=== PATIENT | male | born 1970 | race Asian ===

== ENCOUNTER 2019-04-09 17:38 | Inpatient (IN) | payer BC ==
[~2019-04-09] VITALS: Ht 170.2 cm; Wt 111.6 kg
[2019-04-09] MEDS ORDERED: SODIUM CHLORIDE 0.9% 1000ML 1,000 ML IV STA (17:48)
[2019-04-09] MEDS ORDERED: HYDROMORPHONE 2MG/ML 2 MG/ML ML IV ONE (18:00)
[2019-04-09 18:22] LABS: BILIRUBIN,URINE NEGATIVE (NEGATIVE); CLARITY,URINE SL CLOUDY (CLEAR); KETONES,URINE TRACE (NEGATIVE); LEUKOCYTE ESTERASE ,URINE TRACE (NEGATIVE); NITRITE,URINE NEGATIVE (NEGATIVE); PROTEIN,URINE DIPSTICK 1+ (NEGATIVE); URINE UROBILINOGEN 1 mg/dL (0.2 - 1)
[2019-04-09 18:24] LABS: COLOR,URINE AMBER (YELLOW)
[2019-04-09 18:29] LABS: BASOPHILS # (AUTO) 0.1 (0.0-0.1); BASOPHILS % 0.3 % (0.0-1.0); EOSINOPHILS # (AUTO) 0.1 (0.0-0.4); EOSINOPHILS % 0.3 % (0.0-6.0); HEMATOCRIT 48.1 % (38.2-49.6); HEMOGLOBIN 16.5 g/dL (14.0-18.0); LYMPHOCYTES # (AUTO) 0.9 (1.0-3.2); LYMPHOCYTES % 4.5 % (18.0-39.1); MEAN CORPUSCULAR HEMOGLOBIN 32.2 pg (28-32); MEAN CORPUSCULAR HGB CONC 34.3 g/dL (31-35); MEAN CORPUSCULAR VOLUME 93.8 fL (81-99); MONOCYTES # (AUTO) 1.1 (0.2-0.8); MONOCYTES % 5.9 % (4.4-11.3); NEUTROPHILS # (AUTO) 16.8 (2.1-6.9); NEUTROPHILS % 88.4 % (38.7-80.0); PLATELET COUNT 216 x10e3/uL (140-360); RED BLOOD COUNT 5.13 x10e6/uL (4.3-5.7); RED CELL DISTRIBUTION WIDTH 11.9 % (11.7-14.4)
[2019-04-09] MEDS ORDERED: ACETAMINOPHEN 1000 MG/100 ML IV ONE (18:30)
[2019-04-09] MEDS ORDERED: IBUPROFEN 600 MG TAB PO ONE (18:30)
[2019-04-09] MEDS ORDERED: ONDANSETRON HCL INJ 2MG/ML 2ML 2 MG/ML VIAL IV ONE (18:30)
[2019-04-09 18:47] LABS: BACTERIA,URINE FEW /HPF; EPITHELIAL CELLS,URINE FEW /LPF; RBC,URINE 0-5 /HPF (0-5); WBC,URINE (MAN) 0-5 /HPF (0-5)
[2019-04-09 18:48] LABS: ALANINE AMINOTRANSFERASE 24 IU/L (0-55); ALBUMIN 3.6 g/dL (3.5-5.0); ALBUMIN/GLOBULIN RATIO 0.9 (0.8-2.0); ALKALINE PHOSPHATASE 69 IU/L (40-150); ANION GAP 14.9 mmol/L (8-16); BLOOD UREA NITROGEN 15 mg/dL (7-26); BUN/CREATININE RATIO 18 (6-25); CALCIUM 9.1 mg/dL (8.4-10.2); CARBON DIOXIDE 23 mmol/L (22-29); CHLORIDE 102 mmol/L (98-107); CREATINE KINASE 122 IU/L (30-200); CREATININE, SERUM 0.85 mg/dL (0.72-1.25); EST GLOMERULAR FILTRATION RATE > 60 ML/MIN (60-); GLUCOSE 116 mg/dL (74-118); LIPASE 59 U/L (8-78); POTASSIUM 3.9 mmol/L (3.5-5.1); SODIUM 136 mmol/L (136-145)
[2019-04-09] MEDS: PIPER-TAZ 3.375 GM 50 ML IV SCH (18:50)
--- NOTE | 2019-04-09 18:55 | NUR ---
RADIOLOGY AT BEDSIDE FOR CXR AT THIS TIME.
--- NOTE | 2019-04-09 19:32 | Diagnostic Imaging Report ---
EXAMINATION: CHEST SINGLE (PORTABLE) COMPARISON: None INDICATION: Abdominal pain, fever ^ERMD ORDER ^[id number] ^1854 ^Y DISCUSSION: Frontal view of the chest obtained at 1854 hours. HEART AND MEDIASTINUM: The cardiomediastinal silhouette is unremarkable. LINES: None. LUNGS: Lung volumes are low. Central pulmonary vasculature is mildly prominent. No pneumonia or pulmonary edema. PLEURA: No pleural effusion or pneumothorax. BONES AND SOFT TISSUES: No focal osseous lesion. The soft tissues are normal. IMPRESSION: Low lung volumes which accentuate the pulmonary vasculature. No acute pulmonary process. Signed by: Dr. Sal Irene MD on 04/09/2019 7:29 PM
[2019-04-09] MEDS ORDERED: SODIUM CHLORIDE 0.9% 50ML 50 ML ONE (19:33)
[2019-04-09] MEDS ORDERED: IOPAMIDOL 370 MG/ML 200 ML INFUS..BTL INJ ONE (19:33)
--- NOTE | 2019-04-09 20:15 | Diagnostic Imaging Report ---
CT Abdomen And Pelvis with Intravenous Contrast INDICATION: Sudden onset abdominal pain, fever ^r/o appy ^[id number] ^1955 TECHNIQUE: Thin collimation axial images obtained from the diaphragm to the level of the pubic symphysis following the uneventful administration of 100 cc of low osmolar, nonionic intravenous contrast. Dose reduction techniques used: Automated exposure control, adjustment of the mAs and/or kVp according to patient size, standardized low-dose protocol, and/or iterative reconstruction technique. RADIATION DOSE: Total DLP: 329.1 mGy*cm Estimated effective dose: (DLP x 0.015 x size factor) mSv CTDIvol has been reviewed. It is below the limits set by the Radiation Protocol Committee (RPC). COMPARISON: None. ABDOMEN FINDINGS: Lung Bases: Mild bibasilar atelectasis. Visualized portion of the mediastinum is normal Liver: Normal attenuation. No evidence for mass. Gallbladder: Present and appears normal. No biliary ductal dilatation. Pancreas: Normal attenuation without mass or ductal dilatation. Spleen: Normal in size. No evidence of mass.. Adrenal Glands: No evidence for mass. Kidneys: Right: Normal enhancement. No soft tissue mass. No hydronephrosis. Small amount of perinephric inflammation. Left: Normal enhancement. Upper pole cyst measures 10 mm. No hydronephrosis. Small amount of perinephric inflammation. Lymph Nodes: No enlarged upper abdominal lymph nodes. Lymph nodes in the right lower quadrant are increased in number and measure up to 10 mm. Aorta: Normal in diameter PELVIS FINDINGS: Bowel: Stomach: Normal. Small Bowel: There is edema throughout the small bowel mesentery of the lower abdomen. There is mild mural thickening and inspissated enteric contents in portions of the distal ileum. Large Bowel: Diverticulosis coli. There is mural thickening and pericolonic inflammation of the mid sigmoid colon extending into the small bowel mesentery. This mural thickening results in narrowing of the sigmoid colon lumen without evidence of dilatation of the upstream large bowel. A defined abscess is not visible. There is no evidence of perforation. Appendix: Present and appears normal. Bladder: Normal. Ureters: The right ureter is mildly distended as it passes through the peritoneal inflammation. Left ureter is normal Peritoneum/retroperitoneum: Exuberant inflammation in the lower pelvis with fluid in the paracolic gutters. No loculated fluid collection. No loculated fluid collection. Bones: Unremarkable for age. Soft tissues: Unremarkable. IMPRESSION: 1. Acute diverticulitis of the sigmoid colon with exuberant peritoneal inflammation involving several small bowel loops resulting in reactive ileus. Given the amount of inflammation surrounding the small bowel loops another entity to consider would be infectious enteritis with involvement of the adjacent sigmoid colon. No evidence of abscess or bowel perforation. 2. Normal appendix. 3. Mild bibasilar atelectasis. Signed by: Dr. Sal Irene MD on 04/09/2019 8:12 PM
[2019-04-09] MEDS ORDERED: ONDANSETRON HCL INJ 2MG/ML 2ML 2 MG/ML VIAL IV PRN (20:30)
[2019-04-09] MEDS ORDERED: SODIUM CHLORIDE FLUSH 10 ML SYR INJ PRN (20:30)
--- OUTSIDE RECORDS SUMMARY | 2019-04-09 20:50 | XMS REPORT ---
Author Author [facility] Address Unknown Phone Unavailable Care Team Providers Care Ccie Name Role Phone Lily BLAND Unavailable Unavailable Problems This patient has no known problems. Allergies, Adverse Reactions, Alerts This patient has no known allergies or adverse reactions. Medications This patient has no known medications. Results Test Description Test Time Test Comments Text Results Atomic Results Result Comments CT ABDOMEN/PELVIS W 2019-04-09 20:04:00 [place] [address] Patient Name: CHRIS CHENG MR #: [id number] : 1970 Age/Sex: 48/M Req #: [id number] Adm Physician: Ordered by: MASSIMO BURNETT ANIMAL ASSISTANT Report #: [id number] Location: ER Room/Bed: Procedure: [id number] CT/CT ABDOMEN/PELVIS W Exam Date: 04/09/19 Exam Time: 1955 REPORT STATUS: Signed CT Abdomen And Pelvis with Intravenous Contrast I NDICATION: Sudden onset abdominal pain, fever r/o appy [id number] TECHNIQUE: Thin collimation axial images obtained from the diaphragm to the level of the pubic symphysis following the uneventful administration of 100 cc of low osmolar, nonionic intravenous contrast. Dose reduction techniques used: Automated exposure control, adjustment of the mAs and/or kVp according to patient size, standardized low-dose protocol, and/or iterative reconstruction technique. RADIATION DOSE: Total DLP: 329.1 mGy*cm Estimated effective dose: (DLP x 0.015 x size factor) mSv CTDIvol has been reviewed. It is below the limits set by the Radiation Protocol Committee (RPC). COMPARISON: None. ABDOMEN FINDINGS: Lung Bases: Mild bibasilar atelectasis. Visualized portion of the mediastinum is normal Liver: Normal attenuation. No evidence for mass. Gallbladder: Present and appears normal. No biliary ductal dilatation. Pancreas: Normal attenuation without mass or ductal dilatation. Spleen: Normal in size. No evidence of mass.. Adrenal Glands: No evidence for mass. Kidneys: Right: Normal enhancement. No soft tissue mass. No hydronephrosis. Small amount of perinephric inflammation. Left: Normal enhancement. Upper pole cyst measures 10 mm. No hydronephrosis. Small amount of perinephric inflammation. Lymph Nodes: No enlarged upper abdominal lymph nodes. Lymph nodes in the right lower quadrant are increased in number and measure up to 10 mm. Aorta: Normal in diameter PELVIS FINDINGS: Bowel: Stomach: Normal. Small Bowel: There is edema throughout the small bowel mesentery of the lower abdomen. There is mild mural thickening and inspissated enteric contents in portions of the distal ileum. Large Bowel: Diverticulosis coli. There is mural thickening and pericolonic inflammation of the mid sigmoid colon extending into the small bowel mesentery. This mural thickening results in narrowing of the sigmoid colon lumen without evidence of dilatation of the upstream large bowel. A defined abscess is not visible. There is no evidence of perforation. Appendix: Present and appears normal. Bladder: Normal. Ureters: The right ureter is mildly distended as it passes through the peritoneal inflammation. Left ureter is normal Peritoneum/r etroperitoneum: Exuberant inflammation in the lower pelvis with fluid in the paracolic gutters. No loculated fluid collection. No loculated fluid collection. Bones: Unremarkable for age. Soft tissues: Unremarkable. IMPRESSION: 1. Acute diverticulitis of the sigmoid colon with exuberant peritoneal inflammation involving several small bowel loops resulting in reactive ileus. Given the amount of inflammation surrounding the small bowel loops another entity to consider would be infectious enteritis with involvement of the adjacent sigmoid colon. No evidence of abscess or bowel perforation. 2. Normal appendix. 3. Mild bibasilar atelectasis. Signed by: Dr. Carlita Irene MD on 04/09/2019 8:12 PM Dictated By: CARLITA IRENE MD 11 Transcribed By: IAN on 04/09/192011 COPY TO: MASSIMO BURNETT NP CHEST SINGLE (PORTABLE) 2019-04-09 19:28:00 [place] [address] Patient Name: CHRIS CHENG MR #: [id number] : 1970 Age/Sex: 48/M Req #: [id number] Adm Physician: Ordered by: MASSIMO BURNETT NP Report #: [id number] Location: ER Room/Bed: Procedure: [id number] DX/CHEST SINGLE (PORTABLE) Exam Date: 04/09/19 Exam Time: 1853 REPORT STATUS: Signed EXAMINATION: CHEST SINGLE (PORTABLE) COMPAR RUDY: None INDICATION: Abdominal pain, fever ERMD ORDER [id number] 1854 Y DISCUSSION: Frontal view of the chest obtained at 1854 hours. HEART AND MEDIASTINUM: The cardiomediastinal silhouette is unremarkable. LINES: None. LUNGS: Lung volumes are low. Central pulmonary vasculature is mildly prominent. No pneumonia or pulmonary edema. PLEURA: No pleural effusion or pneumothorax. BONES AND SOFT TISSUES: No focal osseous lesion. The soft tissues are normal. IMPRESSION: Low lung volumes which accentuate the pulmonary vasculature. No acute pulmonary process. Signed by: Dr. Carlita Irene MD on 04/09/2019 7:29 PM Dictated By: CARLITA IRENE MD 28 Transcribed By: IAN on 04/09/191928 COPY TO: MASSIMO BURNETT NP
[2019-04-09] MEDS ORDERED: MORPHINE SULFATE INJ 4 MG/ML INJ 1ML IV PRN (21:00)
[2019-04-09] MEDS: SODIUM CHLORIDE 0.9% 1000ML 1,000 ML IV SCH (21:35)
[2019-04-09 22:30] VITALS: BP 122/90
--- NOTE | 2019-04-09 22:30 | NUR ---
PT ARRIVED ON THE UNIT VIA STRETCHER, ALERT AND ORIENTED, NO SURGICAL HX, HISTORY OF HTN, NO DISTRESS NOTED, NO FEVER NOTED, VS STABLE, ORIENTED TO ROOM, PAPERS SIGNED, NO QUESTIONS NOTED, CALL LIGHT IN REACH, BED LOCKED, TOLD TO CALL FOR NEEDS
[2019-04-09 22:48] VITALS: BP 122/90
[2019-04-10] VITALS (8 sets, daily range): BP systolic 97–136; BP diastolic 58–84
[2019-04-10] MEDS ORDERED: PIPER-TAZ 3.375 GM 50 ML IV SCH
--- NOTE | 2019-04-10 | NUR ---
pt in bed, resting well, at bedside, call light in reach, vs stable, no distress noted
[2019-04-10] MEDS: SODIUM CHLORIDE 0.9% 1000ML 1,000 ML IV SCH ×3 (04:26→15:32)
[2019-04-10 06:00] LABS: BASOPHILS % 0.2 % (0.0-1.0); EOSINOPHILS # (AUTO) 0.2 (0.0-0.4); EOSINOPHILS % 0.9 % (0.0-6.0); HEMATOCRIT 42.1 % (38.2-49.6); HEMOGLOBIN 14.3 g/dL (14.0-18.0); LYMPHOCYTES # (AUTO) 0.9 (1.0-3.2); MEAN CORPUSCULAR HEMOGLOBIN 32.3 pg (28-32); MONOCYTES # (AUTO) 1.4 (0.2-0.8); MONOCYTES % 7.8 % (4.4-11.3); NEUTROPHILS # (AUTO) 14.9 (2.1-6.9); NEUTROPHILS % 85.5 % (38.7-80.0); PLATELET COUNT 175 x10e3/uL (140-360); RED BLOOD COUNT 4.43 x10e6/uL (4.3-5.7); RED CELL DISTRIBUTION WIDTH 11.9 % (11.7-14.4)
[2019-04-10] MEDS: PIPER-TAZ 3.375 GM 50 ML IV SCH ×3 (06:00→21:33)
[2019-04-10] MEDS: ACETAMINOPHEN 1000 MG/100 ML IV PRN ×3 (06:10→21:07)
[2019-04-10 06:23] LABS: ALANINE AMINOTRANSFERASE 20 IU/L (0-55); ALBUMIN 2.8 g/dL (3.5-5.0); ALBUMIN/GLOBULIN RATIO 0.9 (0.8-2.0); ALKALINE PHOSPHATASE 60 IU/L (40-150); ANION GAP 13.8 mmol/L (8-16); BLOOD UREA NITROGEN 11 mg/dL (7-26); BUN/CREATININE RATIO 15 (6-25); CALCIUM 9.3 mg/dL (8.4-10.2); CARBON DIOXIDE 21 mmol/L (22-29); CHLORIDE 108 mmol/L (98-107); CREATININE, SERUM 0.71 mg/dL (0.72-1.25); EST GLOMERULAR FILTRATION RATE > 60 ML/MIN (60-); GLUCOSE 88 mg/dL (74-118); PHOSPHORUS 1.9 MG/DL (2.3-4.7); POTASSIUM 3.8 mmol/L (3.5-5.1); SODIUM 139 mmol/L (136-145)
--- NOTE | 2019-04-10 06:35 | NUR ---
pt asleep, no distress noted, temp 99.8, tylenol given for temp, no pain noted, call light in reach
--- NOTE | 2019-04-10 07:05 | NUR ---
RECEIVED PT AA0X3. PT IS IN N OS.S OF DISTRESS DENIES PAIN TO ABD AT THIS TIME. STATES TENDERNESS ON PALPATION ABD IS SOFT AND BS ARE PRESENT PT STATES LBM WAS 2 DAYS AGO AND REGULAR PT HAS AN IV TO THE LEFT AC 18 G WITH NS AT 125CC/HR SITE IS CLEAN AND DRY WILL CONTINUE TO MONITOR PT CLOSELY SIDE RAILSX2, BED WHEELS LOCKED, CALL LIGHT IS WITHIN EASY REACH, INSTRUCTED TO CALL FOR ASSISTANCE IF NEEDED
[2019-04-10] MEDS: FAMOTIDINE 20 MG/2 ML VIAL IV SCH ×2 (07:50→17:01)
[2019-04-10] MEDS ORDERED: METRONIDAZOLE 500MG/NS 100ML 100 ML IV SCH (08:45)
[2019-04-10] MEDS ORDERED: MORPHINE SULFATE INJ 4 MG/ML INJ 1ML IV PRN (09:00)
--- NOTE | 2019-04-10 14:16 | History and Physical ---
CHIEF COMPLAINT: Acute abdominal pain, leukocytosis, diverticulitis, and neuritis. HISTORY: A 48-year-old male who started to have some pain over the weekend. On Wednesday, pain was quite severe, which brought the patient to the emergency room for evaluation. The patient has leukocytosis, fever. His CT scan of abdomen and pelvis acutely show acute diverticulitis of the sigmoid colon with exuberant peritoneal inflammation involving several small bowel loops resulting in reactive ileus. The patient may have enteritis involvement as well. The patient is otherwise stable at this time. Leukocytosis is trending down. The fever is also improving. The patient has laboratory workup. WBC was 11524, went down to 17.5 thousand. The patient does have a left shift. PAST MEDICAL HISTORY: Noncontributory. PAST SURGICAL HISTORY: Noncontributory. SOCIAL HISTORY: The patient does not smoke or use alcohol. No recreational drugs. ALLERGIES: NO KNOWN ALLERGIES. HOME MEDICATION: None. REVIEW OF SYSTEMS: Abdominal pain, nausea, but no vomiting. PHYSICAL EXAMINATION: VITAL SIGNS: Temperature is 99.8 currently, previous temperature on admission was 102.1. Blood pressure 114/67, pulse rate was 105, respirations 18. GENERAL: The patient is not in acute distress. He is awake. HEENT: Normocephalic, atraumatic. Sclerae anicteric. NECK: Supple grossly. PULMONARY: Diminished breath sounds, but absolute. CARDIOVASCULAR: S1, S2. Tachycardia. ABDOMEN: Tenderness to the left lower quadrant with some guarding but no rebound. EXTREMITIES: No cyanosis or edema. NEUROLOGIC: No gross focal deficit. [place]: [place] [address], hemoglobin 16.5, hematocrit 48.1, platelets 216. Chemistry; sodium 136, potassium 3.9, chloride 102, bicarb 23, BUN is 15, creatinine 0.8, glucose is 116. Liver enzymes normal. Lipase normal. IMPRESSION: 1. Sepsis without shock on admission. 2. Acute peritonitis. 3. Acute sigmoid diverticulitis associated with enteritis. 4. Fever and leukocytosis. PLAN: Continue with Zosyn IV q.8 hours. Add on Flagyl IV q.8 hours. Pain control. IV fluids. Consultation with Dr. Terence Rock in case the patient will need surgery, but at this time, there was no perforation. Consultation with Dr. Jai Marcus for planning for an endoscopy in the future after diverticulitis resolved. Will repeat lab work in the morning. MD AIDA Astudillo/ADRIEL /[id number]
[2019-04-10] MEDS: METRONIDAZOLE 500MG/NS 100ML 100 ML IV SCH (17:01)
--- NOTE | 2019-04-10 22:00 | NUR ---
PATIENT REFUSED BED ALARM.
--- NOTE | 2019-04-10 23:44 | Consultation ---
DATE OF CONSULTATION: 04/10/2019 CHIEF COMPLAINT: Abdominal pain. HISTORY OF PRESENT ILLNESS: The patient is a 48-year-old male with a 3-day history of pain in the suprapubic region with nausea and vomiting, subjective fever and chills. The patient also has been complaining of a constipation and obstipation. The patient had no previous episodes. PAST MEDICAL HISTORY: Unremarkable. ALLERGIES: HE HAS NO DRUG ALLERGIES. SOCIAL HABITS: Denies smoking or alcohol abuse. REVIEW OF SYSTEMS: No chest pain or shortness of breath. PHYSICAL EXAMINATION: VITAL SIGNS: Stable. T-max is 100. GENERAL: He is awake, alert, in moderate discomfort. HEENT: Sclerae anicteric. NECK: Supple. LUNGS: Clear. HEART: Regular rate and rhythm. ABDOMEN: Soft with some guarding tenderness in the lower abdomen, particularly in the suprapubic region. No mild rebound. EXTREMITIES: No cyanosis or edema. LABORATORY DATA: White cell count is 17,000, hemoglobin of 14. Creatinine 0.7. CT of the abdomen show evidence of sigmoid colonic inflammation with dilated loops of small bowel in the vicinity. No abscess. ASSESSMENT: Acute sigmoid diverticulitis, improving now that he is passing flatus. PLAN: Continue IV antibiotics and n.p.o. status except for ice chips. We will follow the patient with you. Terence Rock MD DNMartine/MODL /[id number]
[2019-04-11] VITALS (8 sets, daily range): BP systolic 124–141; BP diastolic 81–97
[2019-04-11] MEDS: METRONIDAZOLE 500MG/NS 100ML 100 ML IV SCH ×3 (00:32→16:56)
--- NOTE | 2019-04-11 01:29 | Consultation ---
DATE OF CONSULTATION: 04/10/2019 GI Consult Note. REASON FOR CONSULT: 1. Acute lower abdominal pain x2 to 3 days. 2. Acute onset of diarrhea followed by some nausea x2 days. 3. CT scan showing acute diverticulitis of sigmoid colon with exuberant peritoneal inflammation. HISTORY OF PRESENT ILLNESS: A 48-year-old very pleasant [place] immigrant, who has unremarkable past medical history. He ate some kind of soup with noodles on Wednesday. Few hours after that he became sick with some nausea, lower abdominal discomfort, which progressively got worse. This prompted him to come to emergency room. Here also he complained about subjective fever. Vital sign showed a temperature of 100.1. The blood work revealed a leukocytosis with left shift, white count was noted at 19. CT of the abdomen and pelvis with IV contrast revealed acute diverticulitis of sigmoid colon with exuberant peritoneal inflammation involving several small bowel loops resulting into reactive ileus. This is also suggestive of possible small bowel infection. The patient was started on broad-spectrum intravenous antibiotics. Surgery has also been consulted. GI has been consulted to assist in his management. REVIEW OF SYSTEMS: Twelve point system reviewed, symptomatology is limited as per HPI. PAST MEDICAL HISTORY: None. PAST SURGICAL HISTORY: None. SOCIAL HISTORY: No smoking, alcohol, or any illicit drug use. ALLERGIES: NONE. HOME MEDICATIONS: None. INPATIENT MEDICATIONS: Reviewed. He is getting intravenous metronidazole, intravenous piperacillin/tazobactam along with other medications. PHYSICAL EXAMINATION: VITAL SIGNS: Temperature has dropped down to 99.8, pulse 91, respirations 16, blood pressure 112/77, oxygen saturation 94% on room air. GENERAL: Not in any acute distress. HEENT: Oral mucosa is moist. Anicteric sclerae. CVS: S1, S2. Regular. LUNGS: Bilaterally grossly clear. ABDOMEN: Soft, mild lower quadrant tenderness on deep palpation without rebound, rigidity or any guarding. Positive bowel sounds. EXTREMITIES: Warm. No leg edema. LABORATORY DATA: WBC has come down to 17.46 from 19, hemoglobin 14.3, hematocrit 42.1, MCV 95, platelet count 175. Sodium 139, potassium 3.8, chloride 108, bicarb 21, BUN 11, creatinine 0.71, glucose 88. Liver enzymes normal. Total bilirubin mildly elevated to 1.5. Urinalysis showed 3+ blood, nitrite negative, bilirubin negative, leukocyte esterase trace. Blood culture pending, it shows no growth after [address] of the abdomen and pelvis with IV contrast showed: 1. Normal solid organ. 2. Acute diverticulitis of sigmoid colon with exuberant peritoneal inflammation involving several small bowel loops, resulting into reactive ileus. Given the amount of inflammation surrounding the small bowel loops, another entity to consider would be infectious enteritis with involvement of adjacent sigmoid colon. No evidence of abscess or bowel perforation. 3. Normal appendix. 4. Mild bibasilar atelectasis. IMPRESSION: Acute sigmoid diverticulitis with concomitant infective enteritis. PLAN: Supportive care, n.p.o., Surgery is already on board. Continue broad-spectrum intravenous antibiotic. Monitor him clinically. I also follow the patient in my office once he is discharged from here. I thank Dr. Hodge for allowing me to participate in the care of this patient. Jamal Pratt MD SA/ADRIEL /[id number]
[2019-04-11] MEDS: SODIUM CHLORIDE 0.9% 1000ML 1,000 ML IV SCH ×2 (04:26→14:38)
[2019-04-11 05:43] LABS: BASOPHILS % 0.3 % (0.0-1.0); EOSINOPHILS # (AUTO) 0.2 (0.0-0.4); EOSINOPHILS % 1.4 % (0.0-6.0); HEMATOCRIT 43.2 % (38.2-49.6); HEMOGLOBIN 14.5 g/dL (14.0-18.0); LYMPHOCYTES # (AUTO) 0.8 (1.0-3.2); LYMPHOCYTES % 6.3 % (18.0-39.1); MEAN CORPUSCULAR HEMOGLOBIN 31.9 pg (28-32); MEAN CORPUSCULAR HGB CONC 33.6 g/dL (31-35); MEAN CORPUSCULAR VOLUME 95.2 fL (81-99); NEUTROPHILS # (AUTO) 10.7 (2.1-6.9); NEUTROPHILS % 83.5 % (38.7-80.0); PLATELET COUNT 205 x10e3/uL (140-360); RED BLOOD COUNT 4.54 x10e6/uL (4.3-5.7); RED CELL DISTRIBUTION WIDTH 11.9 % (11.7-14.4)
[2019-04-11 05:44] LABS: ANION GAP 14.9 mmol/L (8-16); BLOOD UREA NITROGEN 9 mg/dL (7-26); BUN/CREATININE RATIO 12 (6-25); CALCIUM 8.4 mg/dL (8.4-10.2); CARBON DIOXIDE 22 mmol/L (22-29); CHLORIDE 104 mmol/L (98-107); CREATININE, SERUM 0.78 mg/dL (0.72-1.25); EST GLOMERULAR FILTRATION RATE > 60 ML/MIN (60-); GLUCOSE 86 mg/dL (74-118); POTASSIUM 3.9 mmol/L (3.5-5.1); SODIUM 137 mmol/L (136-145)
[2019-04-11] MEDS: PIPER-TAZ 3.375 GM 50 ML IV SCH ×3 (06:16→21:35)
[2019-04-11] MEDS: FAMOTIDINE 20 MG/2 ML VIAL IV SCH ×2 (08:23→16:38)
[2019-04-11] MEDS: ACETAMINOPHEN 1000 MG/100 ML IV PRN (16:38)
--- NOTE | 2019-04-11 21:39 | Progress Note ---
DATE: 04/11/2019 GI Progress Report SUBJECTIVE: The patient reporting significant improvement in abdominal pain. Tolerating liquid diet. He has had several loose stools today. No blood in the stool. REVIEW OF SYSTEMS: GENERAL: No fever or chills. CVS: No chest pain or palpitation. RESPIRATORY: No cough or expectoration. MEDICATIONS: Reviewed as per DEC. He is on intravenous piperacillin/tazobactam and metronidazole. He is also on other medication for supportive care. PHYSICAL EXAMINATION: VITAL SIGNS: Temperature 99.9, pulse 87, respirations 20, blood pressure 141/89, oxygen saturation 95% on room air. GENERAL: Not in any acute distress. HEENT: Oral mucosa is moist. Anicteric sclerae. ABDOMEN: Soft. Mild lower quadrant tenderness on deep palpation. No rebound, rigidity, or any guarding. Positive bowel sounds. LABORATORY DATA: Sodium 137, potassium 3.9, chloride 104, bicarb 22, BUN 9, creatinine 0.78, and glucose 86. WBC has come down to 12.81 from 17.46, hemoglobin 14.5, hematocrit 43.2, MCV 95.2, and platelet count 205. ASSESSMENT: Sigmoid diverticulitis with infective enteritis. CT done on the admission is suggestive of both the component. PLAN: We can advance diet as tolerated. Continue IV antibiotics. White count is trending down. Once the patient becomes afebrile, then we can switch to oral antibiotic. Surgery is also on board. I will continue to follow him clinically. I have given him my business card. The patient will see me in my office within one week after discharge. Jamal Pratt MD SA/ADRIEL /[id number]
--- NOTE | 2019-04-11 22:30 | NUR ---
Patient refused to have bed alarm on.
[2019-04-12 00:09] VITALS: BP 137/85
[2019-04-12] MEDS: METRONIDAZOLE 500MG/NS 100ML 100 ML IV SCH ×2 (01:01→08:52)
[2019-04-12] MEDS: SODIUM CHLORIDE 0.9% 1000ML 1,000 ML IV SCH (03:54)
[2019-04-12 04:00] VITALS: BP 157/96
--- NOTE | 2019-04-12 04:37 | NUR ---
Patient complain of abdominal pain. Called Dr. Hodeg no answer, voicemail left.
[2019-04-12] MEDS ORDERED: MORPHINE SULFATE INJ 4 MG/ML INJ 1ML IV PRN ×2 (05:00→08:15)
[2019-04-12] MEDS ORDERED: ACETAMINOPHEN 1000 MG/100 ML IV PRN ×2 (05:00→08:15)
--- NOTE | 2019-04-12 05:13 | NUR ---
Call back received from Dr. Hodge with new orders.
[2019-04-12] MEDS: PIPER-TAZ 3.375 GM 50 ML IV SCH ×2 (05:52→14:00)
[2019-04-12 06:07] LABS: BASOPHILS % 0.3 % (0.0-1.0); EOSINOPHILS # (AUTO) 0.2 (0.0-0.4); EOSINOPHILS % 2.1 % (0.0-6.0); HEMATOCRIT 43.5 % (38.2-49.6); HEMOGLOBIN 14.9 g/dL (14.0-18.0); LYMPHOCYTES # (AUTO) 0.8 (1.0-3.2); LYMPHOCYTES % 7.8 % (18.0-39.1); MEAN CORPUSCULAR HEMOGLOBIN 31.8 pg (28-32); MEAN CORPUSCULAR HGB CONC 34.3 g/dL (31-35); MEAN CORPUSCULAR VOLUME 92.9 fL (81-99); MONOCYTES # (AUTO) 1.2 (0.2-0.8); MONOCYTES % 11.7 % (4.4-11.3); NEUTROPHILS # (AUTO) 7.7 (2.1-6.9); NEUTROPHILS % 77.7 % (38.7-80.0); PLATELET COUNT 267 x10e3/uL (140-360); RED BLOOD COUNT 4.68 x10e6/uL (4.3-5.7); RED CELL DISTRIBUTION WIDTH 11.9 % (11.7-14.4)
--- NOTE | 2019-04-12 07:00 | NUR ---
bedside shift report received from night rn, pt in stable condition, denies pain at this time, ivf infusing to r ac 18g no ss of infiltration noted, no other co voiced call light in reach will continue to monitor
[2019-04-12 08:52] VITALS: BP 157/96
[2019-04-12] MEDS: FAMOTIDINE 20 MG/2 ML VIAL IV SCH (08:52)
[2019-04-12 09:08] VITALS: BP 146/86
--- NOTE | 2019-04-12 11:19 | NUR ---
CM SPOKE TO SIMONA, BEDSIDE RN, REGARDING PATIENT PLAN OF CARE. PER DR. FREGOSO DIET IS TO BE ADVANCED TODAY TOLERATED. PATIENT TO BE DISCHARGE ON PO ABX ONCE AFEBRILE AND FOLLOW UP WITH HIM IN 1 WEEK.
[2019-04-12 12:10] VITALS: BP 134/94
[2019-04-12] MEDS ORDERED: LEVAQUIN500 MG PO (14:44)
[2019-04-12] MEDS ORDERED: FLAGYL250 MG PO (14:45)
[2019-04-12] MEDS ORDERED: ZOFRAN4 MG SL (14:46)
[2019-04-12] MEDS ORDERED: NORCO 10-325 T1 EACH PO (14:47)
== END 2019-04-12 15:21 | disposition home or self-care (01) | DRG 871 ==
LOC: ER 17:38 → ERHOLD 20:47 → MED/SURG 22:12
PROVIDERS: ADMIT Internal Medicine; ATTEND Internal Medicine
DX: A41.9 Sepsis, unspecified organism (principal); K65.9 Peritonitis, unspecified; K57.52 Diverticulitis of both small and large intestine without perforation or abscess without bleeding; A09 Infectious gastroenteritis and colitis, unspecified; J98.11 Atelectasis; K56.7 Ileus, unspecified
CPT/HCPCS: 36415; 71045; 74177; 80048; 80053; 81001; 82550; 82553; 83605; 83690; 83735; 83880; 84100; 84484; 85025; 87040; 87086; 93005; 99284; J2270; J2405; J2543; J7030; Q9967